=== PATIENT | male | born 1970 | race Hispanic/Latino ===

== ENCOUNTER 2017-03-03 18:09 | Inpatient (IN) | payer MEDICAID, OTHER ==
[2017-03-03 18:22] VITALS: BMI 29.8
[2017-03-03] MEDS ORDERED: Activated Charcoal 260mg capsule PO STA (18:47)
[2017-03-03 19:46] LABS: BASO # 0.04 K/mm3 (0.0-2.0); BASO % 0.6 % (0.0-3.0); EOS # 0.3 (0.0-0.7); EOS % 3.9 % (1.5-5.0); GRAN # 4.21 (1.4-6.5); GRAN % 64.8 % (50.0-68.0); HEMOGLOBIN 12.4 gm/dL (14.0-18.0); LYMPH # 1.5 (1.2-3.4); LYMPH % 23.6 % (22.0-35.0); MEAN CELL VOLUME 101.9 fL (80.0-105.0); MEAN CORPUSCULAR HGB CONC 33.3 g/dl (31.0-37.0); MONO # 0.5 (0.1-0.6); MONO % 7.1 % (1.0-6.0); PLATELET COUNT 232 10^3/uL (120.0-450.0); RBC 3.65 10^6/uL (3.5-6.1); RED CELL DISTRIBUTION WIDTH 14.5 % (11.5-14.5); WHITE BLOOD COUNT 6.5 10^3/ul (4.5-11.0)
[2017-03-03 19:50] LABS: ACETAMINOPHEN < 10.0 ug/ml (10.0-20.0); SALICYLATE < 1 mg/dL (2.0-20.0)
[2017-03-03 19:52] LABS: ALB/GLOB RATIO 1.2 (1.1-1.8); ALBUMIN 3.8 g/dL (3.0-4.8); ALT/SGPT 105 U/L (7-56); AST/SGOT 260 U/L (15-59); BLOOD UREA NITROGEN 10 mg/dL (7-21); CALCIUM 8.6 mg/dL (8.4-10.5); GFR AFRICAN-AMERICAN > 60; GFR NON-AFRICAN AMERICAN 55; MAGNESIUM 1.9 mg/dL (1.7-2.2)
--- NOTE | 2017-03-03 20:40 | ED PDOC ---
Arrival/HPI - General Historian: Patient <Karin Jacques - Last Filed: 03/03/17 21:06> <Gerber Perez - Last Filed: 03/03/17 23:56> - General Chief Complaint: Psychiatric Evaluation Time Seen by Provider: 03/03/17 18:33 - History of Present Illness Narrative History of Present Illness (Text): 03/03/17 20:36 Patient was brought in by EMS c/o suicidal attempt. Patient sts he took Wellbutrin "to end his life". Patient refused to talk, looks intoxicated with AOB. Unclear how many tablets he took and what is the dose of tablets.Patient has no complains, he refused to answer questions. (Karin Jacques) Past Medical History - Provider Review Nursing Documentation Reviewed: Yes - Infectious Disease Hx of Infectious Diseases: None - Cardiac Hx Cardiac Disorders: Yes Hx Hypertension: Yes - Pulmonary Hx Respiratory Disorders: No - Neurological Hx Neurological Disorder: No - HEENT Hx HEENT Disorder: No - Renal Hx Renal Disorder: No - Endocrine/Metabolic Hx Endocrine Disorders: Yes Hx Diabetes Mellitus Type 2: Yes - Hematological/Oncological Hx Blood Disorders: No - Integumentary Hx Dermatological Disorder: No - Musculoskeletal/Rheumatological Hx Musculoskeletal Disorders: No - Gastrointestinal Hx Gastrointestinal Disorders: No - Genitourinary/Gynecological Hx Genitourinary Disorders: No - Psychiatric Hx Psychophysiologic Disorder: No Hx Substance Use: No - Anesthesia Hx Anesthesia: No <Karin Jacques - Last Filed: 03/03/17 21:06> Family/Social History - Physician Review Nursing Documentation Reviewed: Yes Family/Social History: Unknown Family HX Smoking Status: Never Smoked Hx Alcohol Use: Yes Hx Substance Use: No <Karin Jacques - Last Filed: 03/03/17 21:06> Allergies/Home Meds <Karin Jacques - Last Filed: 03/03/17 21:06> <Gerber Perez - Last Filed: 03/03/17 23:56> Allergies/Adverse Reactions: Allergies peanut Allergy (Verified 03/03/17 18:22) ANAPHYLAXIS Review of Systems - Review of Systems Psychiatric: Suicidal Ideation <Karin Jacques - Last Filed: 03/03/17 21:06> Physical Exam Temperature: Afebrile Blood Pressure: Hypertensive Pulse: Tachycardic Respiratory Rate: Normal Appearance: Positive for: Well-Appearing, Non-Toxic, Comfortable Mental Status: Positive for: other (alert, not answering questions) - Systems Exam Head: Present: Atraumatic, Normocephalic Pupils: Present: PERRL Extroacular Muscles: Present: EOMI Conjunctiva: Present: Normal Mouth: Present: Moist Mucous Membranes Pharnyx: Present: Normal Neck: Present: Normal Range of Motion, Paraspinal Tenderness Respiratory/Chest: Present: Clear to Auscultation Cardiovascular: Present: Regular Rate and Rhythm Abdomen: No: Tenderness, Distention Back: Present: Normal Inspection Upper Extremity: Present: Normal Inspection, Normal ROM Lower Extremity: Present: Normal Inspection, Normal ROM Psychiatric: Present: Alert, Intoxicated <Karin Jacques - Last Filed: 03/03/17 21:06> Medical Decision Making <Karin Jacques - Last Filed: 03/03/17 21:06> <Gerber Perez - Last Filed: 03/03/17 23:56> ED Course and Treatment: 03/03/17 20:44 POison control center was contacted, spoke with Lux Camahco who recommended labs with magnesium level, EKG q4-6H, if QRS >120, start Bicarb IV, Observation for at least 24h, Close obs for seizure, Activated Charcoal po. 03/03/17 21:06 case was d/w ICU attending who accepted ICU admission for cardiopulmonary observation. (Karin Jacques) - Lab Interpretations Lab Results: 03/03/17 19:24 03/03/17 19:24 Lab Results 03/03/17 19:24: Alcohol, Quantitative 275 H 03/03/17 19:24: Salicylates < 1 L, Acetaminophen < 10.0 L 03/03/17 19:24: Sodium 142, Potassium 3.9, Chloride 103, Carbon Dioxide 21, Anion Gap 22 H, BUN 10, Creatinine 1.4, Est GFR ( Amer) > 60, Est GFR ( Non-Af Amer) 55, Random Glucose 213 H, Calcium 8.6, Magnesium 1.9, Total Bilirubin 0.5, AST 260 H, ALT 105 H, Alkaline Phosphatase 175 H, Total Creatine Kinase 80, Total Protein 7.1, Albumin 3.8, Globulin 3.3, Albumin/Globulin Ratio 1.2 03/03/17 19:24: WBC 6.5 D, RBC 3.65, Hgb 12.4 L, Hct 37.2 L, MCV 101.9, MCH 34.0, MCHC 33.3, RDW 14.5, Plt Count 232, MPV 9.0, Gran % 64.8, Lymph % (Auto) 23.6, [place] % (Auto) 7.1 H, Eos % (Auto) 3.9, Baso % (Auto) 0.6, Gran # 4.21, Lymph # 1.5, [place] # 0.5, Eos # 0.3, Baso # 0.04 - RAD Interpretation Radiology Orders: 03/03/17 18:35 CHEST PORTABLE [RAD] Stat - Medication Orders Current Medication Orders: Amlodipine Besylate (Norvasc) 10 mg PO DAILY [facility] Enoxaparin Sodium (Lovenox) 40 mg SC DAILY [facility] PRN Reason: Protocol Folic Acid (Folic Acid) 1 mg PO DAILY [facility] Sodium Chloride (Sodium Chloride 0.9%) 1,000 mls @ 125 mls/hr IV .Q8H [facility] Last Admin: 03/03/17 21:42 Dose: 125 mls/hr Insulin Human Lispro (Humalog Low) 0 units SC ACHS [facility] PRN Reason: Protocol Labetalol HCl (Trandate) 100 mg PO TID PRN PRN Reason: sbp greater than 160 Lorazepam (Ativan) 2 mg IVP Q4 PRN; Protocol PRN Reason: Symptoms of alcohol withdrawl Multivitamins (Thera Tab) 1 tab PO 0800 [facility] Pantoprazole Sodium (Protonix Ec Tab) 40 mg PO DAILY [facility] Thiamine HCl (Vitamin B1 Tab) 50 mg PO DAILY [facility] Discontinued Medications Charcoal (Charcoal, Activated) 260 mg PO STAT STA Stop: 03/03/17 18:48 Last Admin: 03/03/17 19:25 Dose: 260 mg - PA / THEORETICAL PHYSICS TEACHER / Resident Statement GAYATRI has reviewed & agrees with the documentation as recorded. GAYATRI has examined the patient and agrees with the treatment plan. <Gerber Perez - Last Filed: 03/03/17 23:56> Disposition/Present on Arrival - Present on Arrival Any Indicators Present on Arrival: No History of DVT/PE: No History of Uncontrolled Diabetes: No Urinary Catheter: No History of Decub. Ulcer: No History Surgical Site Infection Following: None - Disposition Have Diagnosis and Disposition been Completed?: Yes Disposition Time: 21:09 <Karin Jacques - Last Filed: 03/03/17 21:06> <Gerber Perez - Last Filed: 03/03/17 23:56> - Disposition Diagnosis: Overdose of antidepressant, Suicidal overdose, Alcohol intoxication Disposition: HOSPITALIZED Condition: SERIOUS
--- NOTE | 2017-03-03 21:10 | CP.PCM.HP ---
<Scott Keita - Last Filed: 03/04/17 01:03> History of Present Illness - History of Present Illness History of Present Illness: CC: suicide attempt Patient is a 46 year old male with a PMHx of diabetes, hypertension, and depression who presents to the ED via EMS for evaluation of altered mental status from a suicide attempt. Patient seen and examined at bedside in ED. He is awake, alert, responds to verbal stimuli, and is answering questions appropriately. Admits to taking 5 pills of his prescribed wellbutrin in addition to 1/3 gallon of vodka. States that he knows not to take 5 pills at once but wanted to end his life. Also admits to taking xanax. As per his , the patient was sending her text messages containing thoughts of suicidal ideation today and has been speaking of suicide for the past few days. She states that this is his first attempt and has been struggling with depression for approximately 2 years. It is important to note that the patient also a all in the bathroom where he was found on the floor. It is unclear weather he hit his head. Patient was transferred to his bed and is mentating at his baseline. It is also important to note that, as per the , the patient became physical at home. Denies fever, chills, headache, dizziness, chest pain, SOB, abdominal pain, N/V, diarrhea, constipation, and urinary symptoms. PMHx: depression, DM, HTN PSHx: none Allergies: peanuts Family Hx: contributory Medications: please see MAR Social Hx: 1 liter of vodka for 10 years, denies tobacco use, denies illicit drug use PMD: Dr. Kim Present on Admission - Present on Admission Any Indicators Present on Admission: No Review of Systems - Review of Systems Review of Systems: 12 point ROS negative except as indicated in HPI. Past Patient History - Infectious Disease Hx of Infectious Diseases: None - Past Social History Smoking Status: Never Smoked - CARDIAC Hx Cardiac Disorders: Yes Hx Hypertension: Yes - PULMONARY Hx Respiratory Disorders: No - NEUROLOGICAL Hx Neurological Disorder: No - HEENT Hx HEENT Problems: No - RENAL Hx Chronic Kidney Disease: No - ENDOCRINE/METABOLIC Hx Endocrine Disorders: Yes Hx Diabetes Mellitus Type 2: Yes - HEMATOLOGICAL/ONCOLOGICAL Hx Blood Disorders: No - INTEGUMENTARY Hx Dermatological Problems: No - MUSCULOSKELETAL/RHEUMATOLOGICAL Hx Musculoskeletal Disorders: No - GASTROINTESTINAL Hx Gastrointestinal Disorders: No - GENITOURINARY/GYNECOLOGICAL Hx Genitourinary Disorders: No - PSYCHIATRIC Hx Psychophysiologic Disorder: No Hx Substance Use: No - SURGICAL HISTORY Hx Surgeries: No - ANESTHESIA Hx Anesthesia: No Meds Allergies/Adverse Reactions: Allergies Allergy/AdvReac Type Severity Reaction Status Date / Time peanut Allergy ANAPHYLAXIS Verified 03/03/17 18:22 Physical Exam - Constitutional Appears: Non-toxic, No Acute Distress, Agitated - Head Exam Additional comments: midline abrasion midline of scalp - Eye Exam Eye Exam: EOMI, Normal appearance - ENT Exam ENT Exam: Mucous Membranes Moist - Neck Exam Neck exam: Positive for: Normal Inspection - Respiratory Exam Respiratory Exam: Clear to Auscultation Bilateral, NORMAL BREATHING PATTERN. absent: Accessory Muscle Use, Rales, Rhonchi, Wheezes - Cardiovascular Exam Cardiovascular Exam: Tachycardia, +S1, +S2 - GI/Abdominal Exam GI & Abdominal Exam: Soft. absent: Rebound, Rigid - Neurological Exam Neurological exam: Alert, CN II-XII Intact Additional comments: patient is orinetated to name, place, date, and president. Patient does not know where he is currently. - Psychiatric Exam Psychiatric exam: Agitated, Suicidal Ideation - Skin Skin Exam: Abrasion, Normal Color, Warm Additional comments: ecchymosis on the left upper extremity healing abrasion right anterior adams Results - Vital Signs Recent Vital Signs: Last Vital Signs Temp 98.5 F 03/03/17 18:33 Pulse 127 H 03/03/17 21:03 Resp 20 03/03/17 21:03 BP 150/109 H 03/03/17 21:03 Pulse Ox 98 03/03/17 21:03 - Labs Result Diagrams: 03/03/17 19:24 03/03/17 19:24 Labs: Laboratory Results - last 24 hr 03/03/17 03/03/17 03/03/17 19:24 19:24 19:24 WBC 6.5 D RBC 3.65 Hgb 12.4 L Hct 37.2 L MCV 101.9 MCH 34.0 MCHC 33.3 RDW 14.5 Plt Count 232 MPV 9.0 Gran % 64.8 Lymph % (Auto) 23.6 [place] % (Auto) 7.1 H Eos % (Auto) 3.9 Baso % (Auto) 0.6 Gran # 4.21 Lymph # 1.5 [place] # 0.5 Eos # 0.3 Baso # 0.04 Sodium 142 Potassium 3.9 Chloride 103 Carbon Dioxide 21 Anion Gap 22 H BUN 10 Creatinine 1.4 Est GFR ( Amer) > 60 Est GFR (Non-Af Amer) 55 Random Glucose 213 H Calcium 8.6 Magnesium 1.9 Total Bilirubin 0.5 AST 260 H ALT 105 H Alkaline Phosphatase 175 H Total Creatine Kinase 80 Total Protein 7.1 Albumin 3.8 Globulin 3.3 Albumin/Globulin Ratio 1.2 Salicylates < 1 L Acetaminophen < 10.0 L Alcohol, Quantitative 03/03/17 19:24 WBC RBC Hgb Hct MCV MCH MCHC RDW Plt Count MPV Gran % Lymph % (Auto) [place] % (Auto) Eos % (Auto) Baso % (Auto) Gran # Lymph # [place] # Eos # Baso # Sodium Potassium Chloride Carbon Dioxide Anion Gap BUN Creatinine Est GFR ( Amer) Est GFR (Non-Af Amer) Random Glucose Calcium Magnesium Total Bilirubin AST ALT Alkaline Phosphatase Total Creatine Kinase Total Protein Albumin Globulin Albumin/Globulin Ratio Salicylates Acetaminophen Alcohol, Quantitative 275 H Assessment & Plan - Assessment and Plan (Free Text) Assessment: Patient is a 46 M with a PMHx of depression, hypertension, and diabetes who is being admitted to the ICU for evaluation and treatment of a suicide attempt via ingestion of wellbutrin, xanax, and ETOH. 1. Wellbutrin Overdose, Potential Xanax Overdose - poison control contacted by ED- advised to attain serial EKGs to monitor QTc - serial troponins and ekgs - neuro checks q4 - high risk fall precautions 2. Suicide Attempt - 1:1 sitter - Psych consult - UDS 3. ETOH abuse, possible withdrawal, Transaminitis - CIWA protocol - ativan 2mg IV PRN alcohol withdrawl symptoms - abdominal U/S - thiamine, folate, and multivitamin 4. Diabetes Mellitus - hold home metformin 1000mg BID - accu checks ACHS - Insulin sliding scale lispro- low - heart healthy- diabetic diet 5. Fall - rule out intracranial bleed - stat CT of head without contrast- reviewed 6. Htn - continue home amlodipine 10mg QD - hold home carvedilol - hold home olmesartan 40 QD - PRN labetalol 7. Anemia - Iron, TIBC, B12, Folate 8. PPX - lovenox 40mg QD, CT reviewed- no focal intracranial hemorrhage - protonixs Patient seen, evaluated, and discussed with Dr. Tang. <Kitty PRINCE,Dionicio - Last Filed: 03/04/17 06:27> Results - Vital Signs Recent Vital Signs: Last Vital Signs Temp 98.8 F 03/03/17 23:32 Pulse 93 H 03/04/17 06:03 Resp 18 03/04/17 05:50 BP 160/108 H 03/04/17 05:00 Pulse Ox 96 03/04/17 05:50 - Labs Result Diagrams: 03/04/17 04:01 03/04/17 04:01 Labs: Laboratory Results - last 24 hr 03/03/17 03/03/17 03/04/17 21:34 21:53 04:01 WBC RBC Hgb Hct MCV MCH MCHC RDW Plt Count MPV Gran % Lymph % (Auto) [place] % (Auto) Eos % (Auto) Baso % (Auto) Gran # Lymph # [place] # Eos # Baso # Sodium Potassium Chloride Carbon Dioxide Anion Gap BUN Creatinine Est GFR ( Amer) Est GFR (Non-Af Amer) POC Glucose (mg/dL) 181 H Random Glucose Calcium Phosphorus 2.5 Magnesium 1.8 Iron 168 TIBC 250 L % Saturation 68 H Total Bilirubin AST ALT Alkaline Phosphatase Troponin I 0.07 Total Protein Albumin Globulin Albumin/Globulin Ratio Lipase 03/04/17 03/04/17 04:01 04:01 WBC 6.0 RBC 3.16 L Hgb 11.0 L Hct 32.4 L MCV 102.5 MCH 34.8 MCHC 34.0 RDW 14.4 Plt Count 194 MPV 9.1 Gran % 67.2 Lymph % (Auto) 20.3 L [place] % (Auto) 7.5 H Eos % (Auto) 4.3 Baso % (Auto) 0.7 Gran # 4.04 Lymph # 1.2 [place] # 0.5 Eos # 0.3 Baso # 0.04 Sodium 138 Potassium 3.7 Chloride 102 Carbon Dioxide 25 Anion Gap 15 BUN 10 Creatinine 1.4 Est GFR ( Amer) > 60 Est GFR (Non-Af Amer) 55 POC Glucose (mg/dL) Random Glucose 238 H Calcium 8.3 L Phosphorus 3.1 Magnesium 1.4 L Iron TIBC % Saturation Total Bilirubin 0.7 AST 231 H ALT 91 H Alkaline Phosphatase 136 H Troponin I 0.09 D Total Protein 5.9 Albumin 3.3 Globulin 2.6 Albumin/Globulin Ratio 1.2 Lipase 134 Attending/Attestation - Attestation I have personally seen and examined this patient.: Yes I have fully participated in the care of the patient.: Yes I have reviewed all pertinent clinical information: Yes Notes (Text): -I agree with the above H&P completed by the resident physician with the following additions and/or changes: The patient is a 46 year old man with a history of depression, chronic alcohol abuse, NIDDM and HTN, who attempted suicide earlier this evening by reportedly ingesting 5-6 300mg Welbutrin tablets (and also possible several Xanax tabs). In the ED, he was found to be confused and also intoxicated with ETOH. Posion control was notified and the patient's initial ED EKG didn't show any significant abnormalities (normal QTc). He will be admitted to the ICU overnight for close monitoring. Serial EKG's and trop's have been ordered. Also , a 1:1 sitter, psychiatry consult, fall precautions, drug screen and Q4hr neuro checks have been ordered. Because of transaminitis noted on ED labs, an abdominal U/S has also been ordered (although underlying etiology may simply be ETOH intoxication). Lastly, in addition to his home meds of Coreg and Norvasc, PRN IV Labetolol has been ordered to help manage his poorly controlled HTN.
[2017-03-03] MEDS ORDERED: Sodium Chloride 0.9% 1,000 ML IV SCH (21:30)
--- NOTE | 2017-03-03 22:06 | CT ---
EXAM: CT Head Without Intravenous Contrast CLINICAL HISTORY: 46 years old, male; Injury or trauma; Fall; Initial encounter; Blunt trauma (contusions or hematomas); Consciousness not specified; Additional info: R/O bleed TECHNIQUE: Axial computed tomography images of the head/brain without intravenous contrast. This CT exam was performed using one or more of the following dose reduction techniques: automated exposure control, adjustment of the mA and/or kV according to patient size, and/or use of iterative reconstruction technique. EXAM DATE/TIME: 03/03/2017 8:59 PM COMPARISON: There are no prior studies for comparison. FINDINGS: Brain: There is dilatation of sulci gyri and ventricles. There is no midline shift. There is decreased attenuation in periventricular white matter greatest in the frontal lobes. There are no focal masses. There are no focal hemorrhages. Hardwick-white differentiation is visualized. Ventricles: See above. Bones: Cranial vault is intact. Soft tissues: There is right facial swelling. Sinuses: There is no acute sinusitis. Ears and mastoids: Middle ears are unremarkable. Mastoids are incompletely pneumatized and mildly sclerotic. Orbits: Orbital contents are unremarkable. IMPRESSION: Dilatation of sulci and gyri and ventricles greater than expected for patient of this age; white matter disease possibly microvascular disease greater than expected for patient of this age; no acute intracranial abnormality
[2017-03-03 22:43] LABS: MAGNESIUM 1.8 mg/dL (1.7-2.2)
[2017-03-03 22:49] LABS: TROPONIN I 0.07 ng/mL
[2017-03-04] MEDS: Labetalol 5 mg/ml Inj 20ML IV PRN ×2 (01:22→07:31)
[2017-03-04 04:37] LABS: BASO # 0.04 K/mm3 (0.0-2.0); BASO % 0.7 % (0.0-3.0); EOS # 0.3 (0.0-0.7); EOS % 4.3 % (1.5-5.0); GRAN # 4.04 (1.4-6.5); GRAN % 67.2 % (50.0-68.0); LYMPH # 1.2 (1.2-3.4); LYMPH % 20.3 % (22.0-35.0); MEAN CELL VOLUME 102.5 fL (80.0-105.0); MEAN CORPUSCULAR HEMOGLOBIN 34.8 pg (25.0-35.0); MEAN PLATELET VOLUME 9.1 fl (7.0-11.0); MONO # 0.5 (0.1-0.6); MONO % 7.5 % (1.0-6.0); PLATELET COUNT 194 10^3/uL (120.0-450.0); RBC 3.16 10^6/uL (3.5-6.1); RED CELL DISTRIBUTION WIDTH 14.4 % (11.5-14.5)
[2017-03-04 04:41] LABS: ALB/GLOB RATIO 1.2 (1.1-1.8); ALBUMIN 3.3 g/dL (3.0-4.8); ALT/SGPT 91 U/L (7-56); AST/SGOT 231 U/L (15-59); BLOOD UREA NITROGEN 10 mg/dL (7-21); CALCIUM 8.3 mg/dL (8.4-10.5); GFR AFRICAN-AMERICAN > 60; GFR NON-AFRICAN AMERICAN 55; LIPASE 134 U/L (23-300); MAGNESIUM 1.4 mg/dL (1.7-2.2)
[2017-03-04 04:42] LABS: % IRON SATURATION 68 % (20-55); IRON 168 ug/dL (45-180); TOTAL IRON BINDING CAPACITY 250 ug/dL (261-462)
[2017-03-04 04:46] LABS: TROPONIN I 0.09 ng/mL
--- NOTE | 2017-03-04 07:38 | CP.PCM.PN ---
<Tee Suggs - Last Filed: 03/04/17 17:23> Subjective - Date & Time of Evaluation Date of Evaluation: 03/04/17 Time of Evaluation: 07:34 - Subjective Subjective: Patient seen and examined at bedside. Patient explains recent stressors and change in antidepressant regiment. In the past 1.5 weeks he has gotten off of Prozac and started on Wellbutrin. He is a heavy drinker, admits to drinking more since his informed him that she went to go see a foxer in order to get a divorce. He denies any fever, rigidity, or convulsion Objective - Vital Signs/Intake and Output Vital Signs (last 24 hours): Temp Pulse Resp BP Pulse Ox 98.8 F 93 H 18 160/108 H 96 03/03/17 23:32 03/04/17 06:03 03/04/17 05:50 03/04/17 05:00 03/04/17 05:50 Intake and Output: 03/04/17 03/04/17 06:59 18:59 Intake Total 1625 Output Total 600 Balance 1025 - Medications Medications: Current Medications Amlodipine Besylate (Norvasc) 10 mg PO DAILY [facility] Carvedilol (Coreg) 12.5 mg PO BID [facility] Enoxaparin Sodium (Lovenox) 40 mg SC DAILY [facility] PRN Reason: Protocol Folic Acid (Folic Acid) 1 mg PO DAILY [facility] Sodium Chloride (Sodium Chloride 0.9%) 1,000 mls @ 125 mls/hr IV .Q8H [facility] Last Admin: 03/03/17 21:42 Dose: 125 mls/hr Insulin Human Lispro (Humalog Low) 0 units SC ACHS [facility] PRN Reason: Protocol Labetalol HCl (Trandate) 10 mg IV Q6H PRN PRN Reason: Systolic Blood Pressure Last Admin: 03/04/17 01:22 Dose: 10 mg Lorazepam (Ativan) 2 mg IVP Q4 PRN; Protocol PRN Reason: Symptoms of alcohol withdrawl Multivitamins (Thera Tab) 1 tab PO 0800 [facility] Pantoprazole Sodium (Protonix Ec Tab) 40 mg PO DAILY [facility] Thiamine HCl (Vitamin B1 Tab) 50 mg PO DAILY [facility] - Labs Labs: 03/04/17 04:01 03/04/17 04:01 - Constitutional Appears: Well, No Acute Distress - Head Exam Head Exam: ATRAUMATIC, NORMOCEPHALIC - Eye Exam Eye Exam: EOMI, Normal appearance - Neck Exam Neck Exam: Normal Inspection. absent: Tenderness, Thyromegaly - Respiratory Exam Respiratory Exam: Clear to Ausculation Bilateral, NORMAL BREATHING PATTERN. absent: Rales - GI/Abdominal Exam GI & Abdominal Exam: Soft, Normal Bowel Sounds. absent: Rigid, Tenderness - Rectal Exam Rectal Exam: Deferred - Neurological Exam Neurological Exam: Alert, Awake, CN II-XII Intact, Oriented x3 - Psychiatric Exam Additional comments: Patient is relaxed, not currently suicidal, but admits he was yesterday. Assessment and Plan - Assessment and Plan (Free Text) Assessment: 46 yo male with a PMH of depression, HTN, DM, alcohol abuse who was admitted to the ICU for a suicide attempt with Wellbutrin and alcohol intoxication. Plan: Neurologic: Drug withdrawal, neurochecks q4h, seizure precautions, one to one with sitter, CIWA protocol instituted. Patient did not show any signs of seizure, will continue to monitor. Cardiovascular: Patient was on Labetalol drip overnight - Continue all of his home medications -All his PO medications for his hypertension have been instituted. Respiratory: Normal SaO2 on RA. Psych: Psychiatry consulted. Suicide Attempt, 1:1 sitter, Psych consult, UDS Endocrine: Diabetes Mellitus - hold home metformin 1000mg BID - accu checks ACHS - Insulin sliding scale lispro- low - heart healthy- diabetic diet Heme: Anemia Serum Iron, TIBC, B12, Folate DVT/PPX <Angela PRINCE,Inamul H - Last Filed: 03/04/17 17:37> Objective - Vital Signs/Intake and Output Vital Signs (last 24 hours): Temp Pulse Resp BP Pulse Ox 98.1 F 87 19 182/114 H 96 03/04/17 16:00 03/04/17 16:20 03/04/17 16:20 03/04/17 16:00 03/04/17 16:20 Intake and Output: 03/04/17 03/04/17 06:59 18:59 Intake Total 1625 Output Total 600 Balance 1025 - Medications Medications: Current Medications Amlodipine Besylate (Norvasc) 10 mg PO DAILY [facility] Last Admin: 03/04/17 09:31 Dose: 10 mg Carvedilol (Coreg) 12.5 mg PO BID [facility] Last Admin: 03/04/17 09:31 Dose: 12.5 mg Enoxaparin Sodium (Lovenox) 40 mg SC DAILY [facility] PRN Reason: Protocol Last Admin: 03/04/17 09:32 Dose: 40 mg Folic Acid (Folic Acid) 1 mg PO DAILY [facility] Last Admin: 03/04/17 09:32 Dose: 1 mg Multivitamins/Vitamin C 10 ml/Thiamine HCl 100 mg/ Folic Acid 1 mg/ Sodium Chloride 1,011.2 mls @ 100 mls/hr IV .Q10H7M ONE Stop: 03/04/17 17:56 Last Admin: 03/04/17 09:30 Dose: 100 mls/hr Insulin Human Lispro (Humalog Low) 0 units SC ACHS [facility] PRN Reason: Protocol Last Admin: 03/04/17 12:31 Dose: 2 units Labetalol HCl (Trandate) 10 mg IV Q6H PRN PRN Reason: Systolic Blood Pressure Last Admin: 03/04/17 07:31 Dose: 10 mg Lorazepam (Ativan) 2 mg IVP Q4 PRN; Protocol PRN Reason: Symptoms of alcohol withdrawl Losartan Potassium (Cozaar) 50 mg PO DAILY [facility] Last Admin: 03/04/17 09:31 Dose: 50 mg Multivitamins (Thera Tab) 1 tab PO 0800 [facility] Last Admin: 03/04/17 09:31 Dose: 1 tab Pantoprazole Sodium (Protonix Ec Tab) 40 mg PO DAILY [facility] Last Admin: 03/04/17 09:31 Dose: 40 mg Thiamine HCl (Vitamin B1 Tab) 50 mg PO DAILY [facility] Last Admin: 03/04/17 09:30 Dose: 50 mg - Labs Labs: 03/04/17 04:01 03/04/17 04:01 Attending/Attestation - Attestation I have personally seen and examined this patient.: Yes I have fully participated in the care of the patient.: Yes I have reviewed all pertinent clinical information, including history, physical exam and plan: Yes Notes (Text): 03/04/17 17:33 46 y/o M w/ alcohol abuse and depression admitted to the ICU due to increased somnolence No New EKG changes currently and patient's mental status is WNL. Psych evaluation pending . DM on RISS HTN on P.O Medications. dvt P cc time 45 min
[2017-03-04] MEDS ORDERED: Magnesium Sulfate 2 GM in Sodium Chloride 0.9% 100 ML IVPB ONE (07:45)
[2017-03-04] MEDS ORDERED: Multivitamin (MVI) 10 ML, Thiamine 100 MG, Folic Acid 1 MG in Sodium Chloride 0.9% 1,00... IV ONE (07:50)
[2017-03-04] MEDS: Insulin Lispro (humaLOG) LOW Coverage SC SCH ×5 (08:01→21:19)
[2017-03-04] MEDS ORDERED: Thiamine 100 mg/ml Inj ONE (08:04)
[2017-03-04] MEDS: Multivitamin Therapeutic Tab PO SCH (09:31)
[2017-03-04] MEDS: Pantoprazole 40 mg EC Tab PO SCH (09:31)
[2017-03-04] MEDS: Enoxaparin 40 mg Syringe SC SCH (09:32)
--- NOTE | 2017-03-04 10:46 | RAD ---
HISTORY: suicidal COMPARISON: 11/12/2015 FINDINGS: LUNGS: No active pulmonary disease. PLEURA: No significant pleural effusion identified, no pneumothorax apparent. CARDIOVASCULAR: Normal. OSSEOUS STRUCTURES: No significant abnormalities. VISUALIZED UPPER ABDOMEN: Normal. OTHER FINDINGS: None. IMPRESSION: No active disease.
--- NOTE | 2017-03-04 11:05 | CARD ---
APPROVED REPORT EKG Measurement Heart [id number] <Conclusion> Normal sinus rhythm Normal ECG
--- NOTE | 2017-03-04 11:06 | CARD ---
APPROVED REPORT EKG Measurement Heart [id number] [place] [id number] <Conclusion> Normal sinus rhythm Normal ECG
--- NOTE | 2017-03-04 11:07 | CARD ---
APPROVED REPORT EKG Measurement Heart [id number] [place] [id number] <Conclusion> Sinus tachycardia Otherwise normal ECG
--- NOTE | 2017-03-04 11:15 | CARD ---
APPROVED REPORT EKG Measurement Heart [id number] <Conclusion> Sinus tachycardia Possible Left atrial enlargement Borderline ECG
--- NOTE | 2017-03-04 13:19 | US ---
HISTORY: transaminitis COMPARISON: None. TECHNIQUE: Sonographic evaluation of the abdomen. FINDINGS: LIVER: Measures 21.3 cm. Normal echogenicity of the liver parenchyma. No mass. No intrahepatic bile duct dilatation. GALLBLADDER: The gallbladder appears distended but is otherwise unremarkable. No gallstones. COMMON BILE DUCT: Measures 6.3 mm, upper limits of normal caliber. No stones. No dilatation. PANCREAS: Fully evaluated due to extensive overlying bowel gas with the midbody appearing unremarkable. . RIGHT KIDNEY: Measures 11.4cm. Normal echogenicity. No calculus, mass, or hydronephrosis. LEFT KIDNEY: Measures 13.4cm. Normal echogenicity. No calculus, mass, or hydronephrosis. SPLEEN: Borderline splenomegaly at 13.4 cm without focal mass appreciated. AORTA: No aneurysmal dilatation. IVC: Unremarkable. OTHER FINDINGS: None. IMPRESSION: Slightly splenomegaly is suggested based on measurement alone however the right lobe to not extend below the lower pole right kidney and the left lobe also does not appear prominent. The latter comparisons can be used as morphological markers for hepatomegaly. Clinical correlation is advised. Upper limits normal caliber common bile duct at 6.3 mm without choledocholithiasis is evident. No cholelithiasis is demonstrated in the gallbladder which appears distended but otherwise unremarkable. Suboptimal imaging of the pancreas. Borderline splenomegaly.
[2017-03-04 14:02] LABS: FOLATE 3.3 ng/mL
[2017-03-04 17:38] LABS: FOLATE 2.9 ng/mL
--- NOTE | 2017-03-04 20:43 | CARD ---
APPROVED REPORT EKG Measurement Heart [id number] ND [id number] <Conclusion> Normal sinus rhythm Normal ECG
[2017-03-04 23:43] VITALS: TEMP 98.3
[2017-03-05] MEDS: Labetalol 5 mg/ml Inj 20ML IV PRN ×2 (01:56→06:58)
[2017-03-05 05:49] LABS: BASO # 0.04 K/mm3 (0.0-2.0); BASO % 0.6 % (0.0-3.0); EOS # 0.3 (0.0-0.7); GRAN # 4.38 (1.4-6.5); GRAN % 68.6 % (50.0-68.0); HEMOGLOBIN 10.8 gm/dL (14.0-18.0); LYMPH # 1.2 (1.2-3.4); LYMPH % 18.3 % (22.0-35.0); MEAN CORPUSCULAR HEMOGLOBIN 33.3 pg (25.0-35.0); MEAN PLATELET VOLUME 9.4 fl (7.0-11.0); MONO # 0.5 (0.1-0.6); MONO % 7.5 % (1.0-6.0); PLATELET COUNT 172 10^3/uL (120.0-450.0); RBC 3.24 10^6/uL (3.5-6.1); RED CELL DISTRIBUTION WIDTH 14.1 % (11.5-14.5); WHITE BLOOD COUNT 6.4 10^3/ul (4.5-11.0)
[2017-03-05 06:06] VITALS: O2SAT 98
[2017-03-05 06:15] LABS: ALB/GLOB RATIO 1.1 (1.1-1.8); ALT/SGPT 74 U/L (7-56); AST/SGOT 135 U/L (15-59); BLOOD UREA NITROGEN 14 mg/dL (7-21); CALCIUM 8.3 mg/dL (8.4-10.5); GFR AFRICAN-AMERICAN > 60; GFR NON-AFRICAN AMERICAN 55
[2017-03-05] MEDS: Multivitamin Therapeutic Tab PO SCH (08:13)
[2017-03-05] MEDS: Insulin Lispro (humaLOG) LOW Coverage SC SCH ×2 (08:13→12:05)
[2017-03-05] MEDS: Enoxaparin 40 mg Syringe SC SCH (09:15)
[2017-03-05] MEDS: Pantoprazole 40 mg EC Tab PO SCH (09:15)
[2017-03-05 10:14] VITALS: BP 160/99
--- NOTE | 2017-03-05 12:06 | CARD ---
APPROVED REPORT EKG Measurement Heart [id number] LA [id number] [id number] <Conclusion> Normal sinus rhythm Normal ECG
[2017-03-05 15:11] VITALS: PULSE 88; RESP 20
--- NOTE | 2017-03-05 18:51 | CP.PCM.PCO ---
Physician Communication Note - Physician Communication Note Physician Communication Note: pt was seen by , please see notes for info
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
== END 2017-03-05 15:41 | disposition home or self-care (01) | DRG 918 ==
LOC: ED 18:09 → ERH 20:45 → CCU 21:57
PROVIDERS: ADMIT Internal Medicine; ATTEND Internal Medicine
DX: T43.292A Poisoning by other antidepressants, intentional self-harm, initial encounter (principal); T42.4X2A Poisoning by benzodiazepines, intentional self-harm, initial encounter; F32.9 Major depressive disorder, single episode, unspecified; F10.129 Alcohol abuse with intoxication, unspecified; I10 Essential (primary) hypertension; E11.9 Type 2 diabetes mellitus without complications; D64.9 Anemia, unspecified; F43.29 Adjustment disorder with other symptoms; Y90.8 Blood alcohol level of 240 mg/100 ml or more; Z63.0 Problems in relationship with spouse or partner; Z79.84 Long term (current) use of oral hypoglycemic drugs

== ENCOUNTER 2017-05-09 22:59 | Observation (INO) | payer MEDICAID, OTHER ==
[2017-05-09 23:07] VITALS: BMI 33.2
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
[2017-05-10 00:04] LABS: BASO # 0.07 K/mm3 (0.0-2.0); BASO % 0.7 % (0.0-3.0); EOS # 0.2 (0.0-0.7); EOS % 1.9 % (1.5-5.0); GRAN # 8.32 (1.4-6.5); GRAN % 77.8 % (50.0-68.0); HEMATOCRIT 39.8 % (42.0-52.0); LYMPH # 1.5 (1.2-3.4); LYMPH % 13.9 % (22.0-35.0); MEAN CORPUSCULAR HGB CONC 33.7 g/dl (31.0-37.0); MEAN PLATELET VOLUME 9.7 fl (7.0-11.0); MONO # 0.6 (0.1-0.6); MONO % 5.7 % (1.0-6.0); RED CELL DISTRIBUTION WIDTH 12.4 % (11.5-14.5); WHITE BLOOD COUNT 10.7 10^3/ul (4.5-11.0)
[2017-05-10 00:10] LABS: ALB/GLOB RATIO 1.4 (1.1-1.8); ALKALINE PHOSPHATASE 117 U/L (38-126); ALT/SGPT 53 U/L (7-56); AST/SGOT 68 U/L (17-59); BILIRUBIN,TOTAL 0.4 mg/dL (0.2-1.3); BLOOD UREA NITROGEN 17 mg/dL (7-21); CALCIUM 9.4 mg/dL (8.4-10.5); CARBON DIOXIDE 20 mmol/L (21-33); CHLORIDE 101 mmol/L (98-107); GFR AFRICAN-AMERICAN > 60; GLUCOSE,RANDOM 228 mg/dL (70-110); SODIUM 139 mmol/L (132-148); TOTAL PROTEIN 7.3 g/dL (5.8-8.3)
[2017-05-10 00:21] LABS: TROPONIN I 0.02 ng/mL
[2017-05-10] MEDS ORDERED: Metoprolol 1 mg/ml Inj IVP STA (00:39)
[2017-05-10] MEDS ORDERED: Iodixanol 320 MG/ML 100 ML BOTTLE IV ONE (01:08)
[2017-05-10] MEDS ORDERED: Nitroglycerin 2% Ointment Foilpak UD TOP STA (02:18)
--- NOTE | 2017-05-10 02:29 | CT ---
EXAM: CT Angiography Chest With Intravenous Contrast CLINICAL HISTORY: 46 years old, male; Signs and symptoms; Other: Tachycardia; Additional info: Tachycardia/d-dimer mildly elevated TECHNIQUE: Axial computed tomographic angiography images of the chest with intravenous contrast using pulmonary embolism protocol. All CT scans at this facility use one or more dose reduction techniques, viz.: automated exposure control; ma/kV adjustment per patient size (including targeted exams where dose is matched to indication; i.e. head); or iterative reconstruction technique. MIP reconstructed images were created and reviewed. Coronal and sagittal reformatted images were created and reviewed. CONTRAST: 96 mL of visi 320 administered intravenously. COMPARISON: DX - CHEST PORTABLE 05/10/2017 12:00:28 AM FINDINGS: Limitations: Motion artifact - mild to moderate. Suboptimal timing of bolus. Pulmonary arteries: No definite filling defects within main, lobar, segmental branches. Suboptimal evaluation of subsegmental branches. Aorta: No aneurysm. No dissection. Lungs: No consolidation. Pleural space: No significant effusion. No pneumothorax. Heart: No cardiomegaly. No significant pericardial effusion. Mediastinum: Mild mural thickening vs underdistention of esophagus. Bones/joints: No acute fracture. No dislocation. Soft tissues: Unremarkable. Lymph nodes: No pathologically enlarged lymph nodes. IMPRESSION: 1. No definite pulmonary embolism. 2. Mural thickening vs underdistention of esophagus. Clinical correlation is needed.
[2017-05-10] MEDS ORDERED: Nitroglycerin 50mg in D5W 50 MG/250 ML BOTTLE IV PRN (02:45)
[2017-05-10] MEDS ORDERED: Sodium Chloride 0.9% 1,000 ML IV SCH (03:00)
[2017-05-10] MEDS ORDERED: Labetalol 5 mg/ml Inj 20ML IV STA (03:10)
[2017-05-10 07:02] VITALS: RESP 20
--- NOTE | 2017-05-10 09:26 | RAD ---
HISTORY: chest pain COMPARISON: Portable chest 03/03/2017. FINDINGS: LUNGS: No active pulmonary disease. PLEURA: No significant pleural effusion identified, no pneumothorax apparent. CARDIOVASCULAR: Normal. OSSEOUS STRUCTURES: No significant abnormalities. VISUALIZED UPPER ABDOMEN: Normal. OTHER FINDINGS: None. IMPRESSION: No interval acute cardiopulmonary disease appreciated.
[2017-05-10] MEDS ORDERED: buPROPion 300 mg/24 Hours XL Tab PO SCH (10:00)
[2017-05-10] MEDS ORDERED: Insulin Reg-LOW-Coverage SC SCH (11:30)
[2017-05-10 11:59] VITALS: BP 159/101; PULSE 87; TEMP 98.1
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
[2017-05-10 12:25] VITALS: O2SAT 97
--- NOTE | 2017-05-10 13:23 | CARD ---
APPROVED REPORT EKG Measurement Heart [id number] VT 144P59 [id number] <Conclusion> Sinus tachycardia Prolonged QTc
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
== END 2017-05-10 13:58 ==
LOC: ED 22:59 → ERH 05-10 02:44 → 2RNO 05-10 06:49
PROVIDERS: ADMIT Family Medicine; ATTEND Family Medicine
DX: R07.89 Other chest pain (principal); E11.9 Type 2 diabetes mellitus without complications; I10 Essential (primary) hypertension; Z72.89 Other problems related to lifestyle; E78.00 Pure hypercholesterolemia, unspecified; E78.5 Hyperlipidemia, unspecified; Z82.49 Family history of ischemic heart disease and other diseases of the circulatory system; Z83.3 Family history of diabetes mellitus; Z91.010 Allergy to peanuts; Z87.892 Personal history of anaphylaxis; R40.2412 Glasgow coma scale score 13-15, at arrival to emergency department; F41.9 Anxiety disorder, unspecified; Y90.2 Blood alcohol level of 40-59 mg/100 ml
CPT/HCPCS: 36415; 71010; 71275; 80053; 80320; 82550; 82948; 83615; 83880; 84484; 85025; 85378; 93005; 96361; 96374; 96375; 99285; G0378; J0360; J2405; J7040; Q9967

== ENCOUNTER 2017-07-26 22:12 | Emergency (ER) | payer OTHER ==
[2017-07-26 22:12] VITALS: BMI 33.2
== END 2017-07-26 23:01 | disposition left against medical advice (07) ==
LOC: ED 22:12
DX: Z02.89 Encounter for other administrative examinations (principal); T14.8XXA Other injury of unspecified body region, initial encounter

== ENCOUNTER 2018-09-23 14:55 | Emergency (ER) | payer OTHER ==
[2018-09-23 14:56] VITALS: BMI 33.2
[2018-09-23 16:03] VITALS: RESP 18; TEMP 98.2
--- NOTE | 2018-09-23 16:51 | RAD ---
Date of service: 09/23/2018 HISTORY: pes eval COMPARISON: Comparison is made with the previous study dated 05/10/2017 FINDINGS: LUNGS: No active pulmonary disease. PLEURA: No significant pleural effusion identified, no pneumothorax apparent. CARDIOVASCULAR: No aortic atherosclerotic calcification present. Normal cardiac size. No pulmonary vascular congestion. OSSEOUS STRUCTURES: No significant abnormalities. VISUALIZED UPPER ABDOMEN: Normal. OTHER FINDINGS: None. IMPRESSION: No active disease.
[2018-09-23 17:06] LABS: BASO # 0.05 K/mm3 (0.0-2.0); BASO % 0.6 % (0.0-3.0); EOS # 0.1 (0.0-0.7); EOS % 1.5 % (1.5-5.0); HEMOGLOBIN 12.4 g/dL (14.0-18.0); LYMPH # 1.6 (1.2-3.4); LYMPH % 19.7 % (22.0-35.0); MEAN CELL VOLUME 93.4 fl (80.0-105.0); MEAN CORPUSCULAR HEMOGLOBIN 30.5 pg (25.0-35.0); MEAN CORPUSCULAR HGB CONC 32.6 g/dl (31.0-37.0); MONO # 0.6 (0.1-0.6); RBC 4.07 10^6/uL (3.5-6.1); RED CELL DISTRIBUTION WIDTH 13.7 % (11.5-14.5); URINE BILIRUBIN NEGATIVE (NEGATIVE); URINE BLOOD SMALL (NEGATIVE); URINE GLUCOSE (UA) NEGATIVE (NEGATIVE); URINE LEUKOCYTE ESTERASE LARGE Leu/uL (NEGATIVE); URINE PROTEIN 30 mg/dL (<30 mg/dL); URINE UROBILINOGEN 0.2 E.U./dL (<1 E.U./dL); WHITE BLOOD COUNT 7.9 10^3/uL (4.5-11.0)
[2018-09-23 17:10] LABS: URINE APPEARANCE CLEAR (CLEAR); URINE COLOR YELLOW (YELLOW)
[2018-09-23 17:16] LABS: ACETAMINOPHEN < 10.0 ug/ml (10.0-20.0); SALICYLATE < 1 mg/dL (2.0-20.0)
[2018-09-23 17:17] LABS: ALB/GLOB RATIO 1.2 (1.1-1.8); ALBUMIN 4.4 g/dL (3.0-4.8); ALT/SGPT 15 U/L (7-56); AST/SGOT 34 U/L (17-59); BLOOD UREA NITROGEN 16 mg/dL (7-21); GFR NON-AFRICAN AMERICAN 59; URINE BACTERIA MOD /hpf; URINE RBC 15 - 20 /hpf (0-2); URINE WBC 25 - 30 /hpf (0-6)
[2018-09-23 17:30] LABS: BARBITURATES, UR NEGATIVE (NEGATIVE); BENZODIAZEPINES, UR POSITIVE (NEGATIVE); OPIATES, UR NEGATIVE (NEGATIVE); PHENCYCLIDINE, UR NEGATIVE (NEGATIVE)
--- NOTE | 2018-09-23 18:06 | CT ---
Date of service: 09/23/2018 PROCEDURE: CT HEAD WITHOUT CONTRAST. HISTORY: Nose bleed. Hypertension. History of fall. COMPARISON: Comparison made with prior study 03/03/2017. TECHNIQUE: Axial computed tomography images were obtained through the head/brain without intravenous contrast. Radiation dose: Total exam DLP = 916.37 mGy-cm. This CT exam was performed using one or more of the following dose reduction techniques: Automated exposure control, adjustment of the mA and/or kV according to patient size, and/or use of iterative reconstruction technique. FINDINGS: HEMORRHAGE: No acute parenchymal, subarachnoid or extra-axial hemorrhage. BRAIN: Significant diffuse/confluent chronic appearing low-attenuation changes seen extending from the periventricular into the deep and subcortical white matter both cerebral hemispheres. Changes likely represent chronic sequela of small vessel disease however clinical correlation recommended. There also appear to be a few scattered chronic bilateral basal nuclei lacunar type infarcts. Significant central volume loss evidenced by disproportion enlargement of the ventricles compared sulci. VENTRICLES: No obstructive hydrocephalus. CALVARIUM: No acute calvarial fractures. PARANASAL SINUSES: Frontal sinuses remain underpneumatized- hypoplastic. Mild-moderate mucosal thickening seen mucosal thickening within the ethmoid air complex extending superiorly into the inferior margins of frontal sinus. Minor mucosal thickening also noted in the sphenoid sinus MASTOID AIR CELLS: Unremarkable as visualized. No inflammatory changes. OTHER FINDINGS: None. IMPRESSION: No acute intracranial hemorrhage. Significant chronic white matter at ischemic changes with scattered chronic bilateral basal nuclei lacunar type infarcts. Significant central volume loss evidenced by disproportionate enlargement of the ventricles compared sulci.
[2018-09-23 19:06] VITALS: BP 157/86; PULSE 90; O2SAT 97
--- NOTE | 2018-09-23 19:59 | ED PDOC ---
Arrival/HPI - General Chief Complaint: Psychiatric Evaluation Time Seen by Provider: 09/23/18 15:05 Historian: Patient, EMS - History of Present Illness Narrative History of Present Illness (Text): 09/23/18 20:00 47-year-old male with a history of alcohol abuse and depression presents today brought in by ambulance for evaluation for a nosebleed. Patient states he developed a nosebleed at 7:00 this morning and he was having trouble stopping the nosebleed. Patient states when his came home from work she was concerned so she called the ambulance for evaluation. EMS states that the wanted the patient to have a psychiatric evaluation. Patient denies suicidal or homicidal ideation. He denies trying to overdose with any medications today. Patient denies headache dizziness or weakness. He denies chest pain or shortness of breath. Patient states she's not sure why he is even in the hospital. Patient states has a history of hypertension and did not take his evening blood pressure medication. Patient denies any recent trauma or injury. Symptom Onset: Sudden Symptom Course: Resolved Quality: Other (NO pain) Past Medical History - Provider Review Nursing Documentation Reviewed: Yes - Travel History Have you recently traveled outside [place] w/in the past 3 mons?: No - Infectious Disease Hx of Infectious Diseases: None - Tetanus Immunization Tetanus Immunization: Unknown - Cardiac Hx Hypertension: Yes - Pulmonary Hx Respiratory Disorders: No - Neurological Hx Neurological Disorder: No - HEENT Hx HEENT Disorder: No - Renal Hx Renal Disorder: No - Endocrine/Metabolic Hx Endocrine Disorders: Yes Hx Diabetes Mellitus Type 2: Yes - Hematological/Oncological Hx Blood Disorders: No - Integumentary Hx Dermatological Disorder: No - Musculoskeletal/Rheumatological Hx Musculoskeletal Disorders: No - Gastrointestinal Hx Gastrointestinal Disorders: No - Genitourinary/Gynecological Hx Genitourinary Disorders: No - Psychiatric Hx Anxiety: Yes Hx Substance Use: No - Anesthesia Hx Anesthesia: No Hx Anesthesia Reactions: No Hx Malignant Hyperthermia: No Family/Social History - Physician Review Nursing Documentation Reviewed: Yes Family/Social History: Unknown Family HX Smoking Status: Never Smoked Hx Alcohol Use: Yes Hx Substance Use: No Allergies/Home Meds Allergies/Adverse Reactions: Allergies peanut Allergy (Verified 05/09/17 23:06) ANAPHYLAXIS Home Medications: Home Meds Medication Instructions Recorded Confirmed ALPRAZolam [Xanax] 1 mg PO TID PRN 03/05/17 09/21/17 MetFORMIN [glucoPHAGE] 1,000 mg PO BID 03/05/17 09/21/17 Pioglitazone [Actos] 30 mg PO DAILY 03/05/17 09/21/17 Review of Systems - Review of Systems Constitutional: absent: Fatigue, Fevers Eyes: absent: Vision Changes, Photophobia, Eye Pain ENT: Epistaxis. absent: Sore Throat, Sinus Congestion Respiratory: absent: SOB, Cough Cardiovascular: absent: Chest Pain, Palpitations Gastrointestinal: absent: Abdominal Pain, Nausea, Vomiting Musculoskeletal: absent: Arthralgias, Back Pain, Neck Pain Skin: absent: Rash, Pruritis Neurological: absent: Headache, Dizziness Psychiatric: absent: Anxiety, Depression, Suicidal Ideation Physical Exam Vital Signs Reviewed: Yes Vital Signs Temp Pulse Resp BP Pulse Ox 09/23/18 19:06 90 18 157/86 H 97 09/23/18 18:19 96 H 18 163/95 H 98 09/23/18 14:56 98.2 F 95 H 18 161/112 H 96 Temperature: Afebrile Blood Pressure: Hypertensive Pulse: Regular Respiratory Rate: Normal Appearance: Positive for: Well-Appearing, Non-Toxic, Comfortable Pain Distress: None Mental Status: Positive for: Alert and Oriented X 3 - Systems Exam Head: Present: Atraumatic Pupils: Present: PERRL Extroacular Muscles: Present: EOMI Conjunctiva: Present: Normal Ears: Present: Normal, NORMAL TM Mouth: Present: Moist Mucous Membranes, Normal Lips, Normal Tounge. No: Drooling, Trismus Pharnyx: Present: Normal. No: ERYTHEMA, EXUDATE Nose (External): Present: Atraumatic Nose (Internal): Present: No Active Bleeding. No: Septal Deviation, Septal Hematoma Neck: Present: Normal Range of Motion Respiratory/Chest: Present: Clear to Auscultation, Good Air Exchange. No: Respiratory Distress, Accessory Muscle Use Cardiovascular: Present: Regular Rate and Rhythm, Normal S1, S2. No: Murmurs Abdomen: No: Tenderness, Distention, Peritoneal Signs, Rebound, Guarding Back: Present: Normal Inspection Upper Extremity: Present: Normal ROM. No: Tenderness Lower Extremity: Present: Normal ROM Neurological: Present: GCS=15, Speech Normal Skin: Present: Warm, Dry, Normal Color. No: Rashes Psychiatric: Present: Alert, Oriented x 3 Medical Decision Making ED Course and Treatment: 09/23/18 20:05 Patient is nontoxic well-appearing in no distress Patient was found to be hypertensive in the emergency room. Patient did not take his evening dose of his blood pressure medication Coreg 12.5 mg was given in the emergency room. CBC WNL CMP WNL Tylenol WNL Salicylate WNL Alcohol level 187 Urine drug screen: benzo UA; + wbcs cxr: wnl ekg NSr at 83b/m no st elevations. normal axis. normal intervals. HeadCT; FINDINGS: HEMORRHAGE: No acute parenchymal, subarachnoid or extra-axial hemorrhage. BRAIN: Significant diffuse/confluent chronic appearing low-attenuation changes seen extending from the periventricular into the deep and subcortical white matter both cerebral hemispheres. Changes likely represent chronic sequela of small vessel disease however clinical correlation recommended. There also appear to be a few scattered chronic bilateral basal nuclei lacunar type infarcts. Significant central volume loss evidenced by disproportion enlargement of the ventricles compared sulci. VENTRICLES: No obstructive hydrocephalus. CALVARIUM: No acute calvarial fractures. PARANASAL SINUSES: Frontal sinuses remain underpneumatized- hypoplastic. Mild-moderate mucosal thickening seen mucosal thickening within the ethmoid air complex extending superiorly into the inferior margins of frontal sinus. Minor mucosal thickening also noted in the sphenoid sinus MASTOID AIR CELLS: Unremarkable as visualized. No inflammatory changes. OTHER FINDINGS: None. IMPRESSION: No acute intracranial hemorrhage. Significant chronic white matter at ischemic changes with scattered chronic bilateral basal nuclei lacunar type infarcts. Significant central volume loss evidenced by disproportionate enlargement of the ventricles compared sulci. Patient reassessment: Patient is nontoxic well-appearing in no distress with st able vital signs. Blood pressure has drastically improved. pt given keflex for UTI. pt is medically cleared for PES evaluation Patient was seen and evaluated by PES screener: Julio pt reassessment; pt remains without any bleeding from the nose. vitals stable. pt cleared psychiatrically for discharge. Patient was advised to follow-up with the ENT specialist, the urologist for his UTI to follow-up with Dr. Kim the primary care physician within the next 2 days. He was advised immediate return if symptoms worsen persist or if new concerning symptoms develop patient was advised to take antibiotics as prescribed. Patient was advised to follow-up with detox program. Patient states he does not want to go into detox today. Patient is alert and oriented. Nontoxic well-appearing no distress ambulating with a steady gait clinically sober for discharge. Patient verbalizes understanding of discharge instructions and need for immediate followup. all aspects of this case were discussed the attending of record. Impression; nosebleed, UTI, Increase fluids Keflex one capsule twice daily 10 days Follow-up with primary care physician within the next 2 days Follow-up with the urologist within the next 2 days Follow-up with the ENT specialist within the next 2 days Return immediately if symptoms worsen persist or if new concerning symptoms develop: Headaches, dizziness, weakness, chest pain or shortness of breath or if any other concerning symptoms develop Reassessment Condition: Re-examined, Improved - Lab Interpretations Lab Results: Total Bilirubin 0.9 mg/dL (0.2-1.3) 09/23/18 16:59 AST 34 U/L (17-59) 09/23/18 16:59 ALT 15 U/L (7-56) 09/23/18 16:59 Alkaline Phosphatase 110 U/L (38-126) 09/23/18 16:59 Total Protein 7.9 g/dL (5.8-8.3) 09/23/18 16:59 Albumin 4.4 g/dL (3.0-4.8) 09/23/18 16:59 Globulin 3.5 gm/dL 09/23/18 16:59 Albumin/Globulin Ratio 1.2 (1.1-1.8) 09/23/18 16:59 Urine Color Yellow (YELLOW) 09/23/18 16:59 Urine Appearance Clear (CLEAR) 09/23/18 16:59 Urine pH 6.0 (4.7-8.0) 09/23/18 16:59 Ur Specific Bradford <= 1.005 (1.005-1.035) 09/23/18 16:59 Urine Protein 30 mg/dL (<30 mg/dL) H 09/23/18 16:59 Urine Glucose (UA) Negative mg/dL (NEGATIVE) 09/23/18 16:59 Urine Ketones Negative mg/dL (NEGATIVE) 09/23/18 16:59 Urine Blood Small (NEGATIVE) H 09/23/18 16:59 Urine Nitrate Negative (NEGATIVE) 09/23/18 16:59 Urine Bilirubin Negative (NEGATIVE) 09/23/18 16:59 Urine Urobilinogen 0.2 E.U./dL (<1 E.U./dL) 09/23/18 16:59 Ur Leukocyte Esterase Large Mariely/uL (NEGATIVE) H 09/23/18 16:59 Urine RBC 15 - 20 /hpf (0-2) H 09/23/18 16:59 Urine WBC 25 - 30 /hpf (0-6) H 09/23/18 16:59 Ur Epithelial Cells 1 - 3 /hpf (0-5) 09/23/18 16:59 Urine Bacteria Mod /hpf (NONE) 09/23/18 16:59 - RAD Interpretation Radiology Orders: 09/23/18 15:59 CHEST PORTABLE [RAD] Stat 09/23/18 16:22 HEAD W/O CONTRAST [CT] Stat - Medication Orders Current Medication Orders: Discontinued Medications Carvedilol (Coreg) 12.5 mg PO STAT STA Stop: 09/23/18 17:13 Last Admin: 09/23/18 18:02 Dose: 12.5 mg Disposition/Present on Arrival - Present on Arrival Any Indicators Present on Arrival: No History of DVT/PE: No History of Uncontrolled Diabetes: No Urinary Catheter: No History of Decub. Ulcer: No History Surgical Site Infection Following: None - Disposition Have Diagnosis and Disposition been Completed?: Yes Diagnosis: Bleeding from the nose, Alcohol use, Urinary tract infection Disposition: HOME/ ROUTINE Disposition Time: 19:57 Patient Plan: Discharge Patient Problems: Current Active Problems Problem Status Onset Alcohol use Acute Bleeding from the nose Acute Urinary tract infection Acute Condition: GOOD Discharge Instructions (ExitCare): Urinary Tract Infections in Adults, Alcohol Use - When Is Drinking a Problem?, Nosebleeds (DC) Additional Instructions: Increase fluids Keflex one capsule twice daily 10 days Follow-up with primary care physician within the next 2 days Follow-up with the urologist within the next 2 days Follow-up with the ENT specialist within the next 2 days Return immediately if symptoms worsen persist or if new concerning symptoms develop: Headaches, dizziness, weakness, chest pain or shortness of breath or if any other concerning symptoms develop Prescriptions: Cephalexin [Keflex] 500 mg PO BID #20 capsule Referrals: [facility] [Outside] - Follow up with primary Deepak Lorenzo DO [Staff Provider] - Follow up with primary Raghav De Leon MD [Staff Provider] - Follow up with primary Dona Echols MD [Medical Doctor] - Follow up with primary Yonas Kim DO [Staff Provider] - Follow up with primary Forms: [employer] (Indonesian), WORK NOTE
--- NOTE | 2018-09-24 07:47 | CARD ---
APPROVED REPORT Date of service: 09/23/2018 EKG Measurement Heart [id number] <Conclusion> Normal sinus rhythm Normal ECG
== END 2018-09-23 20:39 | disposition home or self-care (01) ==
LOC: ED 14:55
DX: R04.0 Epistaxis (principal); N39.0 Urinary tract infection, site not specified; Z72.89 Other problems related to lifestyle; E11.9 Type 2 diabetes mellitus without complications; I10 Essential (primary) hypertension